=== PATIENT | male | born 1995 | race Caucasian/White ===

== ENCOUNTER 2024-08-14 23:00 | Emergency (ER) | payer MEDICAID ==
[2024-08-14 23:40] LABS: BASOPHILS ABSOLUTE AUTO 0.1 K/mm3 (0.0-0.2); EOSINOPHILS ABSOLUTE AUTO 0.1 K/mm3 (0.0-0.4); EOSINOPHILS PERCENT AUTO 2.9 % (0.0-6.0); HEMATOCRIT 42.2 % (42.0-52.0); HEMOGLOBIN 14.6 gm/dl (14.0-18.0); IMMATURE GRAN ABSOLUTE AUTO 0.02 K/mm3 (0.00-0.05); IMMATURE GRAN PERCENT AUTO 0.4 % (0.0-0.4); LYMPHOCYTES ABSOLUTE AUTO 1.9 K/mm3 (1.0-4.8); LYMPHOCYTES PERCENT AUTO 40.3 % (24.0-44.0); MEAN CORPUSCULAR HEMOGLOBIN 31.5 pg (28.0-32.0); MEAN CORPUSCULAR HGB CONC 34.6 g/dl (32.0-36.0); MEAN CORPUSCULAR VOLUME 91.1 fl (83.0-99.0); MEAN PLATELET VOLUME 10.1 fl (9.4-12.4); MONOCYTES ABSOLUTE AUTO 0.7 K/mm3 (0.0-0.8); MONOCYTES PERCENT AUTO 14.9 % (0.0-8.0); NEUTROPHILS ABSOLUTE AUTO 1.9 K/mm3 (1.8-7.7); NEUTROPHILS PERCENT AUTO 40.5 % (41.0-71.0); PLATELET COUNT,PLT 243 K/mm3 (150-400); RED BLOOD CELL COUNT 4.63 M/mm3 (4.52-5.90); WHITE BLOOD CELL COUNT,WBC 4.77 K/mm3 (3.9-11.3)
[2024-08-15 00:12] LABS: A/G RATIO 1.2 (1-2); ALANINE AMINOTRANSFERASE,ALT 315 U/L (16-63); ALBUMIN 3.9 g/dl (3.4-5.0); ALKALINE PHOSPHATASE 78 U/L (46-116); ANION GAP 18.4 (5-15); ASPARTATE AMNIOTRANSFERASE,AST 428 U/L (15-37); BILIRUBIN TOTAL 0.4 mg/dL (0.2-1.0); BLOOD UREA NITROGEN,BUN 4 mg/dL (7-18); CALCIUM 7.8 mg/dL (8.5-10.1); CARBON DIOXIDE,CO2 22 mEq/L (21-32); CHLORIDE,CL 105 mEq/L (98-107); CREATININE 0.8 mg/dL (0.7-1.3); EST CRCL DRUG DOSING (CG) 135.02 mL/min; ESTIMATED GFR 122 mL/min (>60); GLUCOSE RANDOM 105 mg/dL (70-99); POTASSIUM,K 3.4 mEq/L (3.5-5.1); PROTEIN TOTAL,TP 7.3 g/dl (6.4-8.2); SODIUM,NA 142 mEq/L (136-145)
[2024-08-15 00:17] LABS: LIPASE 269 U/L (16-77); TROPONIN I HIGH SENSITIVITY < 4 pg/mL (<=76)
[2024-08-15] MEDS ORDERED: Naloxone 0.4 MG/ML SDV IVPUSH PRN (00:44)
[2024-08-15] MEDS: Lactated Ringers 1,000 ML IV ONE (00:51)
[2024-08-15] MEDS: Ondansetron 4 MG/2 ML SDV IVPUSH ONE (00:52)
[2024-08-15] MEDS: Morphine 4 MG/ML Syringe IVPUSH ONE (00:52)
[2024-08-15] MEDS: Sodium Chloride 0.9% 10 ML Syringe FLUSH PRN (00:56)
[2024-08-15 01:37] LABS: APPEARANCE,URINE CLEAR (Clear); BILIRUBIN,URINE NEGATIVE (Negative); COLOR,URINE YELLOW (Yellow); GLUCOSE,URINE NEGATIVE (Negative); KETONES,URINE NEGATIVE (Negative); LEUKOCYTE ESTERASE,URINE NEGATIVE (Negative); NITRITE,URINE NEGATIVE (Negative); OCCULT BLOOD,URINE TRACE-INTACT (Negative); PH,URINE 6.5 (5.0-8.0); PROTEIN,URINE 1+ (Negative); UROBILINOGEN,URINE 0.2 (0.2-1.0)
[2024-08-15 01:41] LABS: BARBITURATE SCREEN,URINE PRESUMPTIVE POSITIVE (CUTOFF=200); BENZODIAZEPINES SCREEN,URINE PRESUMPTIVE POSITIVE (CUTOFF=150); BUPRENORPHINE SCREEN,URINE NEGATIVE (CUTOFF=10); METHADONE SCREEN, URINE NEGATIVE (CUT0FF=200); METHAMPHETAMINES SCREEN, URINE NEGATIVE (CUTOFF=500); OXYCODONE SCREEN,URINE NEGATIVE (CUT0FF=100); THC SCREEN,URINE 20 NG/ML NEGATIVE (CUTOFF=50)
[2024-08-15 01:53] LABS: AMPHETAMINES SCREEN, URINE NEGATIVE (CUTOFF=500)
[2024-08-15 02:17] LABS: BACTERIA,URINE NOT SEEN /hpf (FEW); EPITHELIAL CELLS,URINE NOT SEEN /hpf (0-5); MUCUS,URINE NOT SEEN /hpf (FEW); RBC,URINE 0-5 /hpf (0-5); WBC,URINE 0-5 /hpf (0-5)
[2024-08-15] MEDS: Nicotine 21 MG/24 Hr Patch TRDERM ONE (04:22)
[2024-08-15] MEDS: Acetaminophen/oxyCODONE 325-5 MG Tab PO ONE (04:23)
[2024-08-15] MEDS: Ketorolac 15 MG/ML SDV IVPUSH ONE (12:52)
[2024-08-15] MEDS: LORazepam 2 MG/ML SDV IVPUSH ONE (18:12)
== END 2024-08-15 18:25 | disposition home or self-care (01) ==
LOC: JD.ED 23:00
DX: F10.230 Alcohol dependence with withdrawal, uncomplicated (principal)
CPT/HCPCS: 36415; 70450; 71045; 72125; 72128; 72131; 80053; 80306; 80307; 81001; 83605; 83690; 83735; 84484; 85025; 93005; 96361; 96374; 96375; 99285; A9270; J1885; J2060; J2270; J2405; J3490; J7120; 93010; 99283

== ENCOUNTER 2024-10-21 07:47 | Emergency (ER) | payer MEDICAID ==
[2024-10-21 10:06] LABS: BASOPHILS ABSOLUTE AUTO 0.1 K/mm3 (0.0-0.2); EOSINOPHILS ABSOLUTE AUTO 0.3 K/mm3 (0.0-0.4); EOSINOPHILS PERCENT AUTO 3.3 % (0.0-6.0); HEMATOCRIT 43.4 % (42.0-52.0); IMMATURE GRAN ABSOLUTE AUTO 0.01 K/mm3 (0.00-0.05); IMMATURE GRAN PERCENT AUTO 0.1 % (0.0-0.4); LYMPHOCYTES ABSOLUTE AUTO 3.5 K/mm3 (1.0-4.8); LYMPHOCYTES PERCENT AUTO 42.6 % (24.0-44.0); MEAN CORPUSCULAR HEMOGLOBIN 31.4 pg (28.0-32.0); MEAN CORPUSCULAR HGB CONC 34.6 g/dl (32.0-36.0); MEAN PLATELET VOLUME 10.2 fl (9.4-12.4); MONOCYTES ABSOLUTE AUTO 0.5 K/mm3 (0.0-0.8); MONOCYTES PERCENT AUTO 6.5 % (0.0-8.0); NEUTROPHILS ABSOLUTE AUTO 3.8 K/mm3 (1.8-7.7); NEUTROPHILS PERCENT AUTO 46.5 % (41.0-71.0); PLATELET COUNT,PLT 303 K/mm3 (150-400); RED BLOOD CELL COUNT 4.77 M/mm3 (4.52-5.90)
[2024-10-21 10:19] LABS: BARBITURATE SCREEN,URINE NEGATIVE (CUTOFF=200); BENZODIAZEPINES SCREEN,URINE NEGATIVE (CUTOFF=150); BUPRENORPHINE SCREEN,URINE NEGATIVE (CUTOFF=10); METHADONE SCREEN, URINE NEGATIVE (CUT0FF=200); METHAMPHETAMINES SCREEN, URINE NEGATIVE (CUTOFF=500); OXYCODONE SCREEN,URINE NEGATIVE (CUT0FF=100); THC SCREEN,URINE 20 NG/ML NEGATIVE (CUTOFF=50)
[2024-10-21 10:38] LABS: AMPHETAMINES SCREEN, URINE NEGATIVE (CUTOFF=500)
[2024-10-21 11:36] LABS: A/G RATIO 1.1 (1-2); ALBUMIN 3.7 g/dl (3.4-5.0); ANION GAP 13.6 (5-15); BILIRUBIN TOTAL 0.4 mg/dL (0.2-1.0); BUN/CREATININE RATIO 7.1 (14-18); CALCIUM 8.1 mg/dL (8.5-10.1); CREATININE 0.7 mg/dL (0.7-1.3); EST CRCL DRUG DOSING (CG) 149.29 mL/min; ETHANOL BLOOD MEDICAL 0.34 gm% (0.00); POTASSIUM,K 3.6 mEq/L (3.5-5.1)
[2024-10-21] MEDS: PHENobarbital 32.4 MG Tab PO ONE (12:47)
[2024-10-21] MEDS: Pantoprazole 40 MG Vial IVPUSH ONE (12:47)
[2024-10-21] MEDS: Sodium Chloride 0.9% 1,000 ML IV ONE (13:47)
[2024-10-21] MEDS: Ondansetron 4 MG/2 ML SDV IVPUSH ONE (16:34)
[2024-10-21] MEDS: LORazepam 2 MG/ML SDV IVPUSH ONE (17:33)
== END 2024-10-21 18:45 ==
LOC: JD.ED 07:47
DX: F10.10 Alcohol abuse, uncomplicated (principal); Y90.0 Blood alcohol level of less than 20 mg/100 ml
CPT/HCPCS: 36415; 80053; 80143; 80179; 80306; 80307; 83735; 85025; 96361; 96374; 96375; 99285; A9270; J2060; J2405; J2470; J7030